=== PATIENT | male | born 1980 | race Caucasian/White ===

== ENCOUNTER 2024-09-03 15:51 | Inpatient (IN) | payer BC, SELFPAY ==
[2024-09-02 22:20] VITALS: BP 122/83
[2024-09-02 23:35] VITALS: BP 134/80
[2024-09-02 23:46] LABS: % Basophils 0.6 % (0-2); % Eosinophils 3.5 % (0-6); % Monocytes 9.2 % (1.7-9.3); % Neutrophils 40.7 % (42.2-75.2); Absolute Eosinophils 0.2 10^3/uL (0-0.7); Absolute Lymphocytes 2.3 10^3/uL (1.2-3.4); Absolute Monocytes 0.5 10^3/uL (0.1-0.6); Hematocrit 36.3 % (39.0-52.0); Hemoglobin 12.6 g/dL (13.0-18.0); Mean Corp Hgb Conc. 34.7 g/dL (33.0-37.0); Mean Corpuscular Hgb 28.8 pg (27.0-31.0); Mean Corpuscular Volume 82.9 fL (80.0-94.0); Mean Platelet Volume 10.4 fL (7.4-10.4); Nucleated Red Blood Cells % 0 % (-); Platelet Count 186 10^3/uL (130-400); Red Blood Cell Count 4.38 10^6/uL (4.70-6.10); Red Cell Dist. Width 13.8 % (11.5-14.5); White Blood Cell Count 4.9 10^3/uL (4.8-10.8)
[2024-09-02 23:51] VITALS: BMI 32.6
[2024-09-03] VITALS (21 sets, daily range): BP systolic 64–161; BP diastolic 74–113; PULSE 66; O2SAT 98; BMI 31.2
[2024-09-03 00:08] LABS: ALT (SGPT) 30 U/L (0-50); AST (SGOT) 23 U/L (17-59); Albumin 4.2 g/dl (3.5-5.0); Alkaline Phosphatase 65 U/L (38-126); Blood Urea Nitrogen 20 mg/dl (9-20); Calcium 9.4 mg/dl (8.4-10.2); Carbon Dioxide 24 mmol/L (22-30); Chloride 108 mmol/L (98-107); Estimated Creatinine Clearance 110 ml/min; Glucose 143 mg/dl (70-99); Potassium 4.2 mmol/L (3.5-5.1); Sodium 141 mmol/L (135-145); Total Bilirubin 0.3 mg/dl (0.2-1.3); Total Protein 6.7 g/dl (6.3-8.2); eGFR > 60.00
--- NOTE | 2024-09-03 00:53 | ED.GENMED ---
History of Present Illness
<JOSE Davis - Last Filed: 09/03/24 06:12>
General
Chief Complaint: Numbness
Source: patient
Time Seen by Provider: 09/03/24 00:48
Nursing documentation reviewed up to this point in time: agreed with
History of Present Illness
History of Present Illness:
A pleasant 44-year-old male with no past medical history presents to the emergency department for left-sided numbness x 2 days. The patient states that the numbness initially began after a stumble while leaving his house early Friday morning. He
states his dog pulled him out of the front door and did 'a maneuver ', and managed not to fall. He states 'I am going to feel that later '. He states the left-sided numbness is throughout his entire body. He describes it as 'like laying on a
heating pad that only covers the left side of my body '. Denies any vision changes, upper extremity or lower extremity weakness, chest pain, shortness of breath, dizziness, headaches.
Patient incidentally mentions a head injury that occurred on 08/24/2024 on his right church with minimal tenderness as of this moment. Patient injured his left thumb this past Friday which required multiple sutures to close and was
placed on Keflex.
Past History
<JOSE Davis - Last Filed: 09/03/24 06:12>
Past History
ED Past Medical History: None
ED Past Surgical History: None
Social History
Tobacco: Non-smoker
Alcohol: None
Drug: None
Personal:
Living: with family
Employment: Employed
Review of Systems
<JOSE Davis - Last Filed: 09/03/24 06:12>
Review of Systems
Allergies reviewed?: Yes
All Other Systems: ROS reviewed and negative except as documented in HPI and ROS
Phy Exam
<ST SusanTN - Last Filed: 09/03/24 06:12>
General Physical Exam
General Presentation: well appearing and no apparent distress
General age: appears stated age
General Skin: warm
General Habitus: normal
General Hydration: appears well hydrated
Eye Exam
Eye Exam: PERRL and EOMI
NIH Stroke Score
Level of Consciousness: 0 - Alert
LOC questions: 0-Answers both correctly
LOC Commands: 0-Performs both correctly
Best Gaze: 0-Normal
Visual Villalobos: 0=Normal, no visual loss
Facial palsy: 0=Normal, symmetrical
Motor - Right Arm: 0=No drift 10 seconds
Motor - Left Arm: 0=No drift 10 seconds
Motor - Right Le-No drift 5 seconds
Motor - Left Le-No drift 5 seconds
Limb Ataxia: 0-Absent
Sensation: 1-Mild loss
Best Language: 0-No aphasia
Dysarthria: 0-Normal
Extinction and Inattention: 0-No abnormality
Total Score:: 1
Mental
Describe Speech: normal speech
Motor
Gait: normal
Tremors: none
Right upper extremity: 5
Right lower extremity: 5
Left upper extremity: 5
Left lower extremity: 5
Sensory
Sensory Exam: other (change in sensation, but no decrease left sensation compared to right )
Cerebellar
Cerebellar Function: normal finger to nose and normal heel to lewis
Musculoskeletal Exam
Musculoskeletal Exam: full ROM and neuro vasc intact
<Thom Solomon DO - Last Filed: 09/03/24 02:17>
NIH Stroke Score
Total Score:: 1
Course
<Иван Saravia [facility] - Last Filed: 09/03/24 06:12>
Orders/Labs/Results
Orders:
Orders
09/02/24 22:50
CT Head W/o Iv Contrast Urgent
Comment:
Reason For Exam: left arm and left leg numbness for 2 days
09/02/24 23:32
CMP [Comprehensive Metabolic Panel] Urgent
Complete Blood Count/With Diff Urgent
09/03/24 03:24
Admit/Transfer Patient As Directed
Co-Sign Provider:
Level of Care: Observation services
Assign to:: Telemetry
Physician / Group: Tony
Diagnosis: Paresthesias
Reason for Telemetry: CVA/TIA
Date to Stop Telemetry: 09/06/24
Time to Stop Telemetry: 11:00
09/03/24 03:25
Code Status As Directed
Resuscitation Status: Full Code
PRN Pain Medication Management As Directed
May give lesser potent ordered pain med per pt: Yes
preference::
Protocol:: Medication orders for pain may be administered in a
manner that supports deferring to patient preference
when the pt is:
- Requesting an ordered lesser potent pain medication.
Least to most potent pain medications are defined
as: acetaminophen < NSAID < tramadol < opioids
(morphine, oxycodone, hydromorphone).
- Requesting a lesser dose of the same medication IF
ORDERED.
- Requesting a less intrusive route of administration
if both routes are prescribed by the provider (PO <
IV).
09/06/24 11:00
DC Protocol for Telemetry ONCE
Abnormal Lab Results
09/02/24
23:32
RBC 4.38 L 10^6/uL
(4.70-6.10)
Hgb 12.6 L g/dL
(13.0-18.0)
Hct 36.3 L %
(39.0-52.0)
Neutrophils % 40.7 L %
(42.2-75.2)
Chloride 108 H mmol/L
(98-107)
Glucose 143 H mg/dl
(70-99)
09/02/24 23:32
09/02/24 23:32
Vital Signs
Initial and Last Documented VS:
Initial Vital Signs
Temp Pulse Resp BP Pulse Ox
98.1 F 78 18 122/83 98
09/02/24 22:20 09/02/24 22:20 09/02/24 22:20 09/02/24 22:20 09/02/24 22:20
Last Documented Vital Signs
Temp Pulse Resp BP Pulse Ox
98.1 F 66 12 161/99 97
09/02/24 22:20 09/03/24 05:15 09/03/24 05:15 09/03/24 02:00 09/03/24 05:15
<Thom Solomon, DO - Last Filed: 09/03/24 02:17>
Orders/Labs/Results
Orders:
Orders
09/02/24 22:50
CT Head W/o Iv Contrast Urgent
Comment:
Reason For Exam: left arm and left leg numbness for 2 days
09/02/24 23:32
CMP [Comprehensive Metabolic Panel] Urgent
Complete Blood Count/With Diff Urgent
09/03/24 03:24
Admit/Transfer Patient As Directed
Co-Sign Provider:
Level of Care: Observation services
Assign to:: Telemetry
Physician / Group: Tony
Diagnosis: Paresthesias
Reason for Telemetry: CVA/TIA
Date to Stop Telemetry: 09/06/24
Time to Stop Telemetry: 11:00
09/03/24 03:25
Code Status As Directed
Resuscitation Status: Full Code
PRN Pain Medication Management As Directed
May give lesser potent ordered pain med per pt: Yes
preference::
Protocol:: Medication orders for pain may be administered in a
manner that supports deferring to patient preference
when the pt is:
- Requesting an ordered lesser potent pain medication.
Least to most potent pain medications are defined
as: acetaminophen < NSAID < tramadol < opioids
(morphine, oxycodone, hydromorphone).
- Requesting a lesser dose of the same medication IF
ORDERED.
- Requesting a less intrusive route of administration
if both routes are prescribed by the provider (PO <
IV).
09/06/24 11:00
DC Protocol for Telemetry ONCE
Abnormal Lab Results
09/02/24
23:32
RBC 4.38 L 10^6/uL
(4.70-6.10)
Hgb 12.6 L g/dL
(13.0-18.0)
Hct 36.3 L %
(39.0-52.0)
Neutrophils % 40.7 L %
(42.2-75.2)
Chloride 108 H mmol/L
(98-107)
Glucose 143 H mg/dl
(70-99)
09/02/24 23:32
09/02/24 23:32
Vital Signs
Initial and Last Documented VS:
Initial Vital Signs
Temp Pulse Resp BP Pulse Ox
98.1 F 78 18 122/83 98
09/02/24 22:20 09/02/24 22:20 09/02/24 22:20 09/02/24 22:20 09/02/24 22:20
Last Documented Vital Signs
Temp Pulse Resp BP Pulse Ox
98.1 F 66 12 161/99 97
09/02/24 22:20 09/03/24 05:15 09/03/24 05:15 09/03/24 02:00 09/03/24 05:15
<JOSE Davis - Last Filed: 09/03/24 06:12>
MDM/Problems Addressed
Differential Diagnosis Includes:
Stroke, spinal cord injury,
<JOSE Davis - Last Filed: 09/03/24 06:12>
*Critical Care Note
Total Time (30-74mins, 75-104mins- exclusive of procedures): Not Applicable
ED Attending Note
<JOSE Davis - Last Filed: 09/03/24 06:12>
-
Portions of this chart may have been created with voice recognition software.� Occasional wrong word or��sound alike� substitutions may have occurred due to the inherent limitations of voice recognition software.
<Thom Solomon DO - Last Filed: 09/03/24 02:17>
ED Attending Note
Patient seen and examined by attending physician: Yes
I performed the substantive portion of visit, reviewed & personally made and approve the management plan that is documented in note by myself or JOSEPHINE.: Yes
ED Attending Note:
44-year-old otherwise healthy male presents to the emergency department left-sided paresthesias and left-sided hot and cold indifference. Patient states that 2 weeks ago he inadvertently hit his head while at work. He hit his right church. He
states he did not really have any symptoms. On Friday he mistakenly cut his finger. Went to urgent care and had sutures and was started on Keflex. Friday morning he was walking out the door to go to work with the coffee and 1 hand and a dog
leash and another. The dog surgeon pulling the patient off balance. Patient states that he was able to prevent himself from falling but felt injured afterwards. He went to work without issue. Around mid afternoon he started to develop the
left-sided paresthesias and hot and cold intolerance. Since then, from his neck down has been different on the left than on the right. He states that he feels that his left side is numb and everything feels warmer on the left side that it does on
the right. Patient denies any slurring of speech. He has no headache or confusion. He states his right church still hurts from 2 weeks ago but it is minimal. Denies recent fevers. Has no neck pain. Denies chest pain or shortness of breath.
Patient was seen in conjunction with the PA student. I have reviewed and agree with the history and treatment plan presented. On my independent physical exam, patient is awake, alert, and oriented x3, no acute distress. Heart is regular rate and
rhythm. Lungs are clear to auscultation bilaterally no wheezes rales or rhonchi present. Abdomen is soft and nontender. Skin is warm and dry. Neurological exam, patient does feel sensation differences from left side compared to right. Good
muscle strength. Full range of motion in the upper and lower extremity. No horizontal or vertical nystagmus.
Discharge Plan
Departure
Patient Disposition: Admit
Date of Disposition: 09/03/24
Time of Disposition: 02:16
Admit to: Med/Surg
Presentation/result/management discussed w/ accepting MD/DO: Hospitalist
Discharge Problem:
Paresthesia
Interventions
Interventions:
*Risk Screen - Suicide Last Done: 09/02/24 22:20
*General Assessment Last Done: 09/02/24 22:20
*Neglect/Abuse Screening Last Done: 09/02/24 22:20
ED- Fall Risk Assessment Last Done: 09/02/24 23:51
*ED COVID-19 Vaccine History Last Done: 09/02/24 23:51
ED- Neurological Assessment Last Done: 09/02/24 23:56
--- NOTE | 2024-09-03 03:28 | HPS.HSE ---
Family Physician
-
Family Physician: * NONE
Chief Complaint
-
Paresthesias
History of Present Illness
Patient is a 44y M with no significant PMH who presents to ED complaining of numbness and tingling of the L side. Patient states that his symptoms started on Friday afternoon. On Friday, he was walking his dog when he was pulled awkwardly
and notes that he had to contort himself to avoid falling. He noted some mild back discomfort at that time. The sensation of numbness / tingling began later that afternoon. He describes it as feeling similar to a limb 'falling asleep'. He denies
any weakness or ataxia. He denies any prior history of similar symptoms.
The sensation extends from the L shoulder to the L toes. No involvement of the face / neck.
He was seen by his chiropractor today who noted that symptoms did not seem c/w a 'pinched nerve' and advised that he seek further evaluation.
Recent issues include mild impact injury to the R frontal area about 2 weeks ago. He notes that he walked under a backhoe and struck his head on the bucket / forks.
Some residual sensitivity but no noted hematoma, etc.
Patient also suffered a laceration to the L thumb about one week ago on a piece of sheet metal. He received sutures on 08/28 and was started on prophylactic Keflex (he has one day remaining).
He states that the thumb appears to be healing well. He does not feel ill and denies any fever / chills / etc.
Medical History
Past Medical History
Past Medical History: Reports None
Past Surgical History: Reports None
Social History
Tobacco: Non-smoker
Alcohol: Occasional
Drug: None
Family History
Family History: Other (Mother: Breast Cancer)
Allergies / Home Medications
Allergies reflects when Allergies were last updated in [employer].
Home Medications with original date entered in [employer]
Allergy/Medication List:
Allergies
Allergy/AdvReac Type Severity Reaction Status Date / Time
No Known Allergies Allergy Unverified 08/12/20 12:25
Home Medications
cephalexin 500 mg capsule 500 mg PO TID #21 caps 08/12/20
Review of Systems
-
History Source: Patient
A 12 point ROS was completed and negative except as noted: Yes
Constitutional: Denies Fever, Fatigue or Chills
EENT: Denies Sore Throat
Respiratory: Denies Cough or Trouble Breathing
Cardiac: Denies Chest Pain or Palpitations
Abdomen/GI: Denies Abdominal Pain, Nausea, Vomiting or Diarrhea
: Denies Dysuria, Frequency or Flank Pain
Musculoskeletal: Denies Joint Pain or Edema
Neurological: Reports Numbness; Denies Dizzy, Headache or Weakness
Psych: Denies Depression or Anxiety
Physical Exam
Vital Signs
Vital Signs
Temp Pulse Resp BP Pulse Ox
98.1 F 66 10 161/99 97
09/02/24 22:20 09/03/24 02:45 09/03/24 02:45 09/03/24 02:00 09/03/24 02:45
Physical Exam
General: Other (44y M in no acute distress.)
HEENT: Moist mucous membranes and PERRLA
Respiratory: Clear; No Wheezes, Rales or Rhonchi
Cardiac: S1/S2 and Regular Rhythm; No Murmur
GI: Soft, Non Tender, Non Distended and Normal Bowel Sounds
Musculoskeletal: No Clubbing, No Cyanosis and No Edema
Neuro: AO x 3 and Other (Reported sensory asymmetry with constant paresthesias and decreased sensation on the L.)
Laboratory Results
-
09/02/24 23:32
09/02/24 23:32
Laboratory Results
Total Bilirubin 0.3 mg/dl (0.2-1.3) 09/02/24 23:32
AST 23 U/L (17-59) 09/02/24 23:32
ALT 30 U/L (0-50) 09/02/24 23:32
Alkaline Phosphatase 65 U/L (38-126) 09/02/24 23:32
Impression/Plan
-
A/P: Patient is a 44y M with no significant PMH who presents to ED complaining of L sided paresthesias.
Left Sided Paresthesias
- Observe overnight for further evaluation and treatment.
- No appreciable weakness, ataxia, etc on exam.
- Sensory impairment / symptoms from the L arm to the L toes - no head / face involvement.
- Check MR brain in AM per Neurology recommendations.
- Will also check cervical MRI for any abnormality.
- Follow neurologic exam for any changes.
- Neurology consult for additional recommendations.
- PT / OT evaluations.
DVT Prophylaxis: SCDs
Code Status: Full
--- NOTE | 2024-09-03 06:16 | PTCARENOTE ---
Pt received from ED to 414-1. Pt oriented to room and call thao.
[2024-09-03 08:55] LABS: TSH Reflex To Free T4 0.76 uIU/ml (0.47-4.68)
[2024-09-03] MEDS: LOW STRENGTH ASPIRIN 81 MG PO (08:58)
--- NOTE | 2024-09-03 10:25 | CON.NEURO ---
Consultation
Order
Date of Consultation: 09/03/24
Requesting Provider: Manoj Jimenez DO
Reason for Consult: Paresthesias
CC:
HPI: This is a 44-year-old right-handed man who presented to [facility] on September 02, 2024 with sensory symptoms. Mr. Acosta, reports numb tingling on his left side. The onset of the numbness occurred on Friday, and he
was uncertain whether it started in his hand or foot. The tingling sensation is primarily experienced in his left arm and leg, while the numbness is described as similar to the sensation of an arm waking up after being slept on. He does not
experience tingling in his torso, but when lying down, the left side of his torso feels warm compared to the right side. He also reported that he could feel some numbness in his torso upon touching it.
He denied any facial sensory symptoms, headaches, diplopia, dysphagia or vertigo, ataxia. His balance is generally fine, although he experienced some difficulty walking the previous morning due to the numbness in his leg.
ER VS: 122/83-157/104, 78, afebrile
PDMP:none
Labs: Glucose�143, hemoglobin�12.6, normal MCV, normal creatinine, sodium, TSH
CT head�unremarkable
PMH:L II-II distal phalanges traumatic amputation
PSH: left L distal phalanx sutures
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
FH: mother form breast CA
All: NKDA
ROS:Constitutional: Negative. Negative for chills, fever and unexpected weight change.
HENT: Negative for ear pain, hearing loss, tinnitus and trouble swallowing.
Eyes: Negative. Negative for photophobia, pain and visual disturbance.
Respiratory: Negative for cough, choking and shortness of breath.
Cardiovascular: Negative for chest pain, palpitations and leg swelling.
Gastrointestinal: Negative for abdominal pain and vomiting.
Endocrine: Negative. Negative for cold intolerance.
Genitourinary: Negative for dysuria, flank pain and urgency.
Musculoskeletal: Negative for back pain, gait problem, neck pain and neck stiffness.
Skin: Negative for rash.
Allergic/Immunologic: Negative. Negative for immunocompromised state.
Neurological: Positive for sensory symptoms
Psychiatric/Behavioral: Negative for behavioral problems, confusion and hallucinations.
General: Well developed. In no acute distress.
Cardio: Regular rate and rhythm without murmur. Extremities are without cyanosis or edema.
Neuro:
Mental Status: Alert, oriented to person, place, and date. Normal attention and recall. Good fund of knowledge. Follows complex requests across the midline. Comprehension, naming, and repetition intact. Immediate and delayed recall 3/3.
Cranial Nerves: Pupils are equally round and reactive to light. EOMs full. Visual jacobsen full to confrontation. No ptosis. No nystagmus. V1-V3 intact to light touch and pinprick bilaterally, symmetric. Face symmetric. Normal hearing AU. The
palate elevated well. SCMs and traps 5/5. Tongue midline. No dysarthria.
Motor: Normal bulk and tone. No pronator or arm drift. Strength 5/5 throughout. No clonus.
Reflexes: 2+ throughout the upper extremities and knees. Negative Flako's bilaterally plantar responses flexor bilaterally.
Sensory: Normal vibration and proprioception at the toes
Coordination: No dysmetria or tremor.
Gait: Wide stance, normal base, stride. Mild difficulties with tandem gait and jumping on the left foot with
Assessment and Plan:
I. Left hemisensory deficits. No clear evidence of myelopathy on neuroexam. Rule out right thalamic vascular or demyelinating lesion
II. Anemia
III. Mild hyperglycemia
-Fall precaution
-Please obtain brain MRI without gadolinium
-Please check vitamin B-12, folate, vitamin B1, ESR/CRP, urine tox.
I personally reviewed all radiology and labs along with past medical records pertinent to current medical problems. Total time spent in patient care is 60 minutes.
Thank you for allowing us to participate in the care of this patient. We will continue to follow. Please do not hesitate to contact us with any questions or concerns.
Subjective/Objective
Subjective Data
Date of Service: September 03, 2024
Objective Data
Vital Signs
Temp Pulse Resp BP Pulse Ox
37.3 C 108 16 157/104 94
09/03/24 07:01 09/03/24 07:01 09/03/24 07:01 09/03/24 07:01 09/03/24 07:01
Lab Results
09/02/24 23:32
09/02/24 23:32
Sodium 141 mmol/L (135-145) 09/02/24 23:32
Potassium 4.2 mmol/L (3.5-5.1) 09/02/24 23:32
BUN 20 mg/dl (9-20) 09/02/24 23:32
Glucose 143 mg/dl (70-99) H 09/02/24 23:32
Calcium 9.4 mg/dl (8.4-10.2) 09/02/24 23:32
Patient Allergies
No Known Allergies Allergy (Unverified 08/12/20 12:25)
Medications
-
Active Medications
Generic Name Dose Route Start Last Admin
Trade Name Freq PRN Reason Stop Dose Admin
Acetaminophen 650 mg 09/03/24 06:17
Acetaminophen 325 Mg Tablet PO 10/01/24 06:16
Q4HPRN PRN
Mild Pain / Temp > 101
Aspirin 81 mg 09/03/24 08:00 09/03/24 08:58
Aspirin 81 Mg Chewable Tablet PO 10/01/24 07:59 81 mg
DAILY ROBERTO Administration
Home Medications
�Medication �Instructions �Recorded
cephalexin 500 mg capsule 500 mg PO TID #21 caps 08/12/20
Vital Signs and Labs
-
Vital Signs and Labs:
Vital Signs
Temp Pulse Resp BP Pulse Ox
37.3 C 108 16 157/104 94
09/03/24 07:01 09/03/24 07:01 09/03/24 07:01 09/03/24 07:01 09/03/24 07:01
Lab Results
09/02/24 23:32
09/02/24 23:32
Sodium 141 mmol/L (135-145) 09/02/24 23:32
Potassium 4.2 mmol/L (3.5-5.1) 09/02/24 23:32
BUN 20 mg/dl (9-20) 09/02/24 23:32
Glucose 143 mg/dl (70-99) H 09/02/24 23:32
Calcium 9.4 mg/dl (8.4-10.2) 09/02/24 23:32
Medications
-
Medications:
Generic Name Dose Route Start Last Admin
Trade Name Freq PRN Reason Stop Dose Admin
Acetaminophen 650 mg 09/03/24 06:17
Acetaminophen 325 Mg Tablet PO 10/01/24 06:16
Q4HPRN PRN
Mild Pain / Temp > 101
Aspirin 81 mg 09/03/24 08:00 09/03/24 08:58
Aspirin 81 Mg Chewable Tablet PO 10/01/24 07:59 81 mg
DAILY ROBERTO Administration
Home Medications
-
Home Medications
cephalexin 500 mg capsule 500 mg PO TID #21 caps 08/12/20
[2024-09-03 10:41] LABS: Glycohemoglobin (HgbA1c) 5.5 % (4.0-5.6)
[2024-09-03 11:58] LABS: CRP, Highly Sensitive 1.72 mg/L
[2024-09-03 13:01] LABS: Folate 14.7 ng/ml (2.76-20); Vitamin B12 281 pg/ml (239-931)
[2024-09-03 13:43] LABS: Amphetamines Negative (Negative); Barbiturates Negative (Negative); Benzodiazepines Negative (Negative); Buprenorphine Negative (Negative); Cocaine Negative (Negative); Marijuana Negative (Negative); Methadone Negative (Negative); Methamphetamines Negative (Negative); Opiates Negative (Negative); Phencyclidine Negative (Negative); Tricyclic Antidepressants Negative (Negative)
[2024-09-03 14:39] LABS: Erythrocyte Sed Rate 8 mm/hour (0-20)
--- NOTE | 2024-09-03 14:48 | W.PN.UPDATE ---
Update Note
Progress Note Update
Brain/C spine MRIs w/wo hanane showed hyperintense FLAIR signal within bilateral cervicomedullary junction with subtle focal enhancement on the right.
Assessment and plan:
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 Differential diagnosis includes demyelinating, inflammatory, infectious, neoplastic and paraneoplastic etiology, less likely vascular.
-Continue Telemetry
-ICU transfer(cervicomedullary junction is center of control of autonomic nervous system activity that regulates respiration and heart rate)
-Start Methylprednisolone 1000 mg daily IV QD for 3-5 days with GI prophylaxis
-CSF(OP/CP, cell count, protein, glucose, OCB, MBP, EBNNY, cx)
-ESR/CRP, anti SSA, SSB, BENNY, JIMMY, HIV, NMO-IgG, MOG�, Parvovirus B19, West Nile virus, CMV, EBV, HSV, VZV, hepatitis panel.
-Plan was discussed with the patient. All questions were answered.
Adamaris Kearney M.D.
--- NOTE | 2024-09-03 15:25 | W.PN.HOSP.TC ---
Today's Communication/Plan
-
See plan
Assessment / Plan
Assessment / Plan
Impression:
44 years old patient with no prior medical history presents with left-sided paresthesias for less than a week.
Transverse myelitis confirmed with imaging MRI of cervical spine findings consistent with hyperintense FLAIR signal within the cervicomedullary cord peripherally on the right and left aspects of the cord (right greater than left) suggesting
myelopathy and likely involving the lateral corticospinal tracts and spinothalamic tracts. There is subtle focal enhancement of this area on the right side of the cord, suggesting active disease.
No motor or autonomic symptoms upon presentation.
MRI of the brain with no acute abnormalities
Differential diagnosis transverse myelitis versus MS, less likely neuromyelitis optica, or ischemia.
Additional workup including:
LP
Serologic testing for autoimmune/inflammatory processes.
Transferred to ICU for close neurologic monitoring.
Initiate pulse dose of systemic steroids.
Mild B12 deficiency
Initiated oral B12 supplementation
Patient with laceration of the left thumb. Sutures in place. No evidence of infection. Continue oral antibiotics. Complete outpatient course.
Anticipated Discharge: > 48 hours
Subjective/Interval History
-
Date of Service: September 03, 2024
Objective Data
-
Labs:
Laboratory Results
09/03/24
15:16
PT Pending
INR Pending
Vital Signs:
Vital Signs
Temp Pulse Resp BP Pulse Ox
98.3 F 66 14 142/93 98
09/03/24 11:29 09/03/24 11:29 09/03/24 11:09/03/24 11:09/03/24 11:29
Physical Exam
-
General: Well Developed and No Apparent Distress
HEENT: Normocephalic, Atraumatic and Moist Mucous Membranes
Respiratory: Clear to Auscultation
Cardiac: Regular Rhythm and S1/S2; Negative Murmur, Rub or Gallop
GI: Soft, Nontender, Nondistended and Normal Bowel Sounds; Negative Organomegaly
Rectal: Deferred by Provider
Musculoskeletal: No Clubbing, No Cyanosis and No Edema
Skin: Negative Rash
Neuro: Nonfocal/Grossly Intact
[2024-09-03 15:37] LABS: INR 0.99; PT 12.9 Sec (11.4-14.6)
--- NOTE | 2024-09-03 15:55 | CM ---
Pt seen bedside w/ family. Pt lives w/ spouse and son in a [address]-13 steps to enter
Independent, no DME for functioning
Denies SNF
Denies VN/PT
Denies financial insecurities
Address, point of contact and insurance verified
PCP: Dr. Pathak
Pharmacy: [facility]
Pt OBS. OOBS form reviewed, pt given copy. Copy placed in chart
PT/OT- poss OT therapy. Will cont. to follow
Plan: Home w/ OP therapy
CM will cont. to follow for d/c needs
[2024-09-03 16:23] LABS: HIV Combo Negative (Negative)
--- NOTE | 2024-09-03 16:30 | PTCARENOTE ---
[address] [facility] via stretcher. Explain to pt, will transfer to ICU room [address] [facility]. Report given to ICU nurse. all personnel belongings sent to ICU.
--- NOTE | 2024-09-03 17:25 | CON.INTV ---
Consultation
Consultation Request
Date/Time Consultation Requested: 09/03
Date/Time Consultation Performed: 09/03
Reason for Consultation: Critical care
Medical History
-
History of Present Illness:
History obtained from the patient but most history is obtained from the chart. Patient is a 44-year-old male without significant past medical history who presents with neurological changes involving his left side. Per ED records he complained of
numbness and tingling in the left side started on 08/31/2024. There is no involvement of the face or neck. He was told by his chiropractor that it was likely not that pinched nerve. Upon arrival to [facility], afebrile, pulse 66,
breathing at 10, blood pressure 161/99, 97%. Liver function was normal. Patient was seen by neurology, brain MRI was obtained, which showed hyperintense FLAIR signal with bilateral cervical medullary junction subtle focal enhancement on the right.
Concern for transverse myelitis was noted. Patient was started on IV methylprednisolone pulse dose. Patient underwent lumbar tap and patient was transferred to ICU for further management 09/03/2024.
Records suggest that patient also had laceration of left thumb which sheet-metal 1 week ago and also had mildly impact injury to his right frontal area when he was struck with a pocket. He went to urgent care where they stitched up his left thumb
injury and he does note possibly getting tetanus shot about 4 years ago when he injured his left second and third digit
.
PMH: Sleep apnea with nocturnal hypoxia AHI 80 with desaturation aniket 84% 2007, intolerant to CPAP. Repeat study unremarkable 2020, GERD
Past Medical History
Past Medical History: None (See above)
Past Surgical History: None (See above)
Social History
Tobacco: Non-smoker
Alcohol: Occasional
Drug: None
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
Family History
Family History: Other (1 son healthy. Mother is from breast cancer age 64, father alive.)
Allergies / Home Medications
Allergies
Allergy/AdvReac Type Severity Reaction Status Date / Time
No Known Allergies Allergy Unverified 08/12/20 12:25
Home Medications
�Medication �Instructions �Recorded �Confirmed �Last Taken �Type
cephalexin 500 mg capsule 500 mg PO TID #21 caps 08/12/20 09/03/24 09/02/24 21:00 Rx
Review of Systems
-
All other systems: Negative unless noted
Vitals / Labs / Diagnostic Testing
Vital Signs
Temp Pulse Resp BP Pulse Ox
98.0 F 64 14 128/87 98
09/03/24 17:00 09/03/24 17:10 09/03/24 17:10 09/03/24 17:10 09/03/24 17:00
Lab Data
09/02/24 23:32
09/02/24 23:32
Laboratory Results
09/03/24
15:16
PT 12.9
INR 0.99
Diagnostic Testing:
Assessment
-
44-year-old male without significant medical history with recent left thumb injury 1 week ago went to urgent care, had it stitched. He now presents with left-sided numbness. He notes it more while he is walking. He describes a tingling sensation.
He went to see a chiropractor who said needs to see a physician. Patient seen by neurology, and suspected to have transverse myelitis, now transferred to ICU for further management
Transverse myelitis per MRI imaging
Left-sided tingling/numbness started 08/31/2024
Recent laceration of left thumb
Sutures 08/28/2024
Started on antibiotics
Distant left first and second digit injury, approximately 2019
Saw, received tetanus shot at that time
History of sleep apnea, severe (AHI 80 in 2007)
Witnessed apneas in the past
Recent sleep study 2020 normal
Family history of breast cancer (mother)
Plan/recommendations
At this time, patient appears to be comfortable. There is no evidence of hemodynamic instability, no evidence of shortness of breath
Patient denies any vision changes, headaches, palpitations, lightheadedness, chest pain, breathing issues
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
Moving forward
Continue with management per neurology
Patient is status post LP
Ongoing workup for possible inflammatory or autoimmune process
Receiving IV pulse steroids
Remains on antibiotics as outpatient, cephalexin for recent thumb injury
GI prophylaxis
Follow blood sugars
DVT prophylaxis: Recommend mechanical prophylaxis. Will be an ongoing discussion regarding pharmacological prophylaxis. Patient status post LP today
Reviewed with critical care nursing
We will follow
[2024-09-03 17:32] LABS: CSF Clarity Clear; CSF Color Colorless; CSF Tube # 4; White Cell Count/CSF 4 mm^3 (0-5)
[2024-09-03 17:33] LABS: Red Cell Count/CSF 6 mm^3
[2024-09-03] MEDS: VITAMIN B-12 1000 MCG PO (17:44)
[2024-09-03] MEDS: PROTONIX 40 MG PO (17:44)
[2024-09-03] MEDS: KEFLEX 500 MG PO ×2 (17:44→22:37)
[2024-09-03] MEDS: SOLU-MEDROL 258 MG IV (17:45)
[2024-09-03 17:58] LABS: Magnesium 2.3 mg/dl (1.6-2.3)
[2024-09-03 18:01] LABS: APTT 28.2 Sec (23.4-35.0)
[2024-09-03 18:33] LABS: Glucose - Point of Care 80 mg/dl (70-99)
--- NOTE | 2024-09-03 18:33 | PTCARENOTE ---
Pt received to ICU bed 3371 from [facility] at 1730. Report received from 4th floor RN and IR RN.
Pt AAOx3. Reports decreased sensation on left side which he reports improved when in bed and worse when walking around.
Denies pain. Sinus rhythm. Lungs CTA. SpO2 98%. Abdomen soft and NT.
[2024-09-03 18:36] LABS: Spinal Fluid Glucose 58 mg/dl (40-70); Spinal Fluid Protein 59 mg/dl (12-60)
[2024-09-03] MEDS: NOVOLOG FLEXPEN-LOW RESISTANCE SC (19:14)
[2024-09-03 21:55] LABS: Glucose - Point of Care 269 mg/dl (70-99)
[2024-09-03] MEDS: NOVOLOG FLEXPEN 4 UNITS SC (22:37)
--- NOTE | 2024-09-03 22:51 | PTCARENOTE ---
Assumed care of pt at 1900. Pt is A/O x4, pleasant and cooperative with care. No c/o pain. Muscle strength 5/5 in all extremities, see neurological flowsheet for full neuro check details. Pt reports decreased sensation in left arm and left leg but
there are no changes in his strength in those extremities. See nursing shift assessment flowsheet for full physical assessment details. SR on monitor, SpO2 96% on RA.
[2024-09-04] VITALS (14 sets, daily range): BP systolic 119–160; BP diastolic 62–92; BMI 30.5
--- NOTE | 2024-09-04 00:23 | PTCARENOTE ---
Physical and neurological assessments unchanged. SR 60s on monitor, SpO2 95% on RA. Pt received x1 dose of 4 units Novolog for HS blood sugar of 269. Pt educated at that time on s/s of hypoglycemia since he has never had insulin before.
[2024-09-04 03:15] LABS: Hematocrit 43.7 % (39.0-52.0); Hemoglobin 14.9 g/dL (13.0-18.0); Mean Corp Hgb Conc. 34.1 g/dL (33.0-37.0); Mean Corpuscular Hgb 29.3 pg (27.0-31.0); Mean Platelet Volume 10.5 fL (7.4-10.4); Platelet Count 215 10^3/uL (130-400); Red Blood Cell Count 5.08 10^6/uL (4.70-6.10); Red Cell Dist. Width 13.3 % (11.5-14.5); White Blood Cell Count 7.4 10^3/uL (4.8-10.8)
[2024-09-04 03:39] LABS: Blood Urea Nitrogen 17 mg/dl (9-20); Calcium 9.9 mg/dl (8.4-10.2); Carbon Dioxide 19 mmol/L (22-30); Chloride 106 mmol/L (98-107); Estimated Creatinine Clearance > 125 ml/min; Glucose 187 mg/dl (70-99); HDL Cholesterol 71 mg/dl; LDL Cholesterol, Calculated 147 mg/dl; Potassium 4.9 mmol/L (3.5-5.1); Sodium 141 mmol/L (135-145); Total Cholesterol 225 mg/dl (50-199); Triglyceride 39 mg/dl (10-149); Very Low Density Lipoprotein 7 mg/dl (0-30); eGFR > 60.00
--- NOTE | 2024-09-04 07:14 | W.PN.INTV ---
Today's Communication / Plan
Recommendations
Continue steroids
Mechanical DVT prophylaxis
Await neuro studies
Follow blood sugars
For transfer out of ICU. We will sign off. Please call with questions
Assessment
-
44-year-old male without significant medical history with recent left thumb injury 1 week ago went to urgent care, had it stitched. He now presents with left-sided numbness. He notes it more while he is walking. He describes a tingling sensation.
He went to see a chiropractor who said needs to see a physician. Patient seen by neurology, and suspected to have transverse myelitis, now transferred to ICU for further management
Transverse myelitis per MRI imaging
Left-sided tingling/numbness started 08/31/2024
Recent laceration of left thumb
Sutures 08/28/2024
Started on antibiotics
Distant left first and second digit injury, approximately 2019
Saw, received tetanus shot at that time
History of sleep apnea, severe (AHI 80 in 2007)
Witnessed apneas in the past
Recent sleep study 2020 normal
Family history of breast cancer (mother)
Plan/recommendations
At this time, patient appears to be comfortable. There is no evidence of hemodynamic instability, no evidence of shortness of breath
Patient denies any vision changes, headaches, palpitations, lightheadedness, chest pain, breathing issues
Moving forward
Continue with management per neurology
Patient is status post LP
Ongoing workup for possible inflammatory or autoimmune process
Receiving IV pulse steroids
Remains on antibiotics as outpatient, cephalexin for recent thumb injury
GI prophylaxis
Follow blood sugars
DVT prophylaxis: Recommend mechanical prophylaxis. Will be an ongoing discussion regarding pharmacological prophylaxis. Patient status post LP today
Reviewed with critical care nursing
Okay for transfer out of ICU. We will sign off. Please call with questions
Subjective Dataa
Subjective Data
Date of Service:
Date of Service: September 04, 2024
Subjective:
Patient without complaints. Denies any tingling sensation of the left side but in the past states that this was with ambulation.
Objective Data
Data Reviewed
Vital Signs / I&O / Oxygen:
Vital Signs
Temp Pulse Resp BP Pulse Ox
97.6 F 78 24 132/87 95
09/04/24 03:03 09/04/24 06:00 09/04/24 06:00 09/04/24 06:00 09/04/24 06:00
Intake and Output
09/03/24 09/04/24 09/05/24
06:59 06:59 05:59
Intake Total 500 / 500
Output Total 1775 / 1775
Balance -1275 / -1275
SaO2 95
Physical Exam
General: Comfortable
HEENT: Normocephalic and Anicteric
Cardiovascular: S1-S2, Regular Rhythm, Murmur (n) and Rub (n)
Respiratory: Wheeze (n), Crackles (n), Rhonchi (n) and Non-Labored Respirations
GI: Soft, Non Distended and Non Tender
Neurology: Alert and No Motor Deficits
Skin: Other (Left digit stitches)
Labs/Micro/Reports
Lab Data
09/04/24 03:07
09/04/24 03:07
Laboratory Results
09/03/24
15:16
PT 12.9
INR 0.99
APTT 28.2
Microbiology
09/03/24 16:45 Csf Gram Stain - Preliminary
[2024-09-04 07:24] LABS: Glucose - Point of Care 175 mg/dl (70-99)
[2024-09-04] MEDS: NOVOLOG FLEXPEN-LOW RESISTANCE 1 UNITS SC (08:33)
[2024-09-04] MEDS: PROTONIX 40 MG PO (08:34)
[2024-09-04] MEDS: VITAMIN B-12 1000 MCG PO (08:34)
[2024-09-04] MEDS: KEFLEX 500 MG PO ×3 (08:34→22:22)
[2024-09-04] MEDS: LOW STRENGTH ASPIRIN 81 MG PO (08:34)
--- NOTE | 2024-09-04 08:49 | W.PN.HOSP.TC ---
Today's Communication/Plan
-
transfer to tele
cont pulse dose steroids
Assessment / Plan
Assessment / Plan
Impression:
44 years old patient with no prior medical history presents with left-sided paresthesias for less than a week.
09/04/24- continue pulse dose steroids--Ok for transfer to tele--cont PT/OT--pt asking for discharge despite explaining needs daily pulse dose steroids--CSF studies pending
Transverse myelitis confirmed with imaging MRI of cervical spine findings consistent with hyperintense FLAIR signal within the cervicomedullary cord peripherally on the right and left aspects of the cord (right greater than left) suggesting
myelopathy and likely involving the lateral corticospinal tracts and spinothalamic tracts. There is subtle focal enhancement of this area on the right side of the cord, suggesting active disease.
No motor or autonomic symptoms upon presentation.
MRI of the brain with no acute abnormalities
Differential diagnosis transverse myelitis versus MS, less likely neuromyelitis optica, or ischemia.
Additional workup including:
LP
Serologic testing for autoimmune/inflammatory processes.
Transferred to ICU for close neurologic monitoring.
Initiate pulse dose of systemic steroids.
Mild B12 deficiency
Initiated oral B12 supplementation
Patient with laceration of the left thumb. Sutures in place. No evidence of infection. Continue oral antibiotics. Complete outpatient course.
Anticipated Discharge: > 48 hours
Subjective/Interval History
-
Date of Service: September 04, 2024
pt asking about going home
Objective Data
-
Labs:
Laboratory Results
09/04/24
03:07
WBC 7.4
Hgb 14.9
Hct 43.7
Plt Count 215
Sodium 141
Potassium 4.9
Chloride 106
Carbon Dioxide 19 L
BUN 17
Creatinine 0.8
Glucose 187 H
Calcium 9.9
Vital Signs:
max temp for 24 hours
09/03/24
23:14
Temp 98.7 F
Vital Signs
Temp Pulse Resp BP Pulse Ox
98.1 F 72 15 150/78 97
09/04/24 07:00 09/04/24 08:00 09/04/24 08:00 09/04/24 08:00 09/04/24 08:00
I&O
09/03/24 09/04/24 09/05/24
06:59 06:59 05:59
Intake Total 500 / 500
Output Total 1775 / 1775
Balance -1275 / -1275
Review of Systems
-
All other systems: Reviewed and negative
Neuro: Reports Other (still with some left sided paresthesias)
Physical Exam
-
General: Well Developed, Well Nourished and No Apparent Distress
HEENT: Normocephalic and Atraumatic; Negative Oxygen
Respiratory: Clear to Auscultation; Negative Wheezes or Rhonchi
Cardiac: Regular Rhythm and S1/S2; Negative Murmur
GI: Soft, Nontender, Nondistended and Normal Bowel Sounds
Musculoskeletal: No Clubbing, No Cyanosis and No Edema
Neuro: Awake, Alert and Nonfocal/Grossly Intact; Negative No Motor Deficits or Tremors
--- NOTE | 2024-09-04 11:58 | W.PN.NEURO.1 ---
Today's Communication / Plan
-
.
Subjective/Objective
Subjective Data
Date of Service: September 04, 2024
Neurology follow-up note
24h events: hypertensive in AM, afebrile.
Mr. Acosta states that his left paresthesias have been stable. No reports of dysarthria, dysphagia, dysphonia sialorrhea, palpitations or change in vision.
CSF (09/03/2024) OP <10 cm water, normal cell count, glucose, protein
Labs: Glucose�187, vitamin B12 281, normal folate, normal TSH
Brain/C spine MRIs w/wo hanane showed hyperintense FLAIR signal within bilateral cervicomedullary junction with subtle focal enhancement on the right.
PMH:L II-II distal phalanges traumatic amputation
PSH: left L distal phalanx sutures
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
FH: mother from breast CA
All: NKDA
ROS:Constitutional: Negative. Negative for chills, fever and unexpected weight change.
HENT: Negative for ear pain, hearing loss, tinnitus and trouble swallowing.
Eyes: Negative. Negative for photophobia, pain and visual disturbance.
Respiratory: Negative for cough, choking and shortness of breath.
Cardiovascular: Negative for chest pain, palpitations and leg swelling.
Gastrointestinal: Negative for abdominal pain and vomiting.
Endocrine: Negative. Negative for cold intolerance.
Genitourinary: Negative for dysuria, flank pain and urgency.
Musculoskeletal: Negative for back pain, gait problem, neck pain and neck stiffness.
Skin: Negative for rash.
Allergic/Immunologic: Negative. Negative for immunocompromised state.
Neurological: Positive for sensory symptoms, hand tremor
Psychiatric/Behavioral: Negative for behavioral problems, confusion and hallucinations.
General: Well developed. In no acute distress.
Cardio: Regular rate and rhythm without murmur. Extremities are without cyanosis or edema.
Neuro:
Mental Status: Alert, oriented to person, place, and date. Normal attention and recall. Good fund of knowledge. Follows complex requests across the midline. Comprehension, naming, and repetition intact. Immediate and delayed recall 3/3.
Cranial Nerves: Pupils are equally round and reactive to light. EOMs full. Visual jacobsen full to confrontation. No ptosis. No nystagmus. V1-V3 intact to light touch and pinprick bilaterally, symmetric. Face symmetric. Normal hearing AU. The
palate elevated well. SCMs and traps 5/5. Tongue midline. No dysarthria.
Motor: Normal bulk and tone. No pronator or arm drift. Strength 5/5 throughout, except for L delt 5-/5. No clonus.
Reflexes: 2+ throughout the upper extremities and 3+knees. Negative Flako's bilaterally plantar responses flexor bilaterally.
Coordination: No dysmetria, mild action hand tremor
Gait: deferred
Assessment and plan:
I. Transverse myelitis. Differential diagnosis includes demyelinating, inflammatory, infectious, neoplastic and paraneoplastic etiology, less likely vascular.
II. Action hand tremor, likely side effect of prednisone
III. Vit B12 deficiency
-Continue ICU care for 24h more hours
-Continue Methylprednisolone 1000 mg daily IV QD for 2 more doses
-GI prophylaxis
-Continue cyanocobalamin 1000mg QD PO, start thiamine
-Follow up CSF and serological studies
-DVT prophylaxis.
I personally reviewed all radiology and labs along with past medical records pertinent to current medical problems. Total time spent in patient care is 35 minutes.
Thank you for allowing us to participate in the care of this patient. We will continue to follow. Please do not hesitate to contact us with any questions or concerns.
Objective Data
Vital Signs
Temp Pulse Resp BP Pulse Ox
37.1 C 103 18 151/92 98
09/04/24 11:00 09/04/24 11:30 09/04/24 09:00 09/04/24 10:42 09/04/24 09:00
Lab Results
09/04/24 03:07
09/04/24 03:07
PT 12.9 Sec (11.4-14.6) 09/03/24 15:16
INR 0.99 09/03/24 15:16
APTT 28.2 Sec (23.4-35.0) 09/03/24 15:16
Sodium 141 mmol/L (135-145) 09/04/24 03:07
Potassium 4.9 mmol/L (3.5-5.1) 09/04/24 03:07
BUN 17 mg/dl (9-20) 09/04/24 03:07
Glucose 187 mg/dl (70-99) H 09/04/24 03:07
Calcium 9.9 mg/dl (8.4-10.2) 09/04/24 03:07
LDL Cholesterol, Calc 147 mg/dl 09/04/24 03:07
Vitamin B12 281 pg/ml (239-931) 09/03/24 11:15
Ur Buprenorphine Negative (Negative) 09/03/24 13:23
Patient Allergies
No Known Allergies Allergy (Unverified 08/12/20 12:25)
[2024-09-04] MEDS: NOVOLOG FLEXPEN-LOW RESISTANCE 2 UNITS SC (12:06)
[2024-09-04 12:16] LABS: Glucose - Point of Care 214 mg/dl (70-99)
[2024-09-04] MEDS: THIAMINE INJECTION 100 MG IV (13:53)
--- NOTE | 2024-09-04 14:31 | PTCARENOTE ---
Rec'd pt at 0700. Pt AAOx3, follows commands, FLANAGAN with equal strength. Reports tingling to LUE/LLE and left side of body, unchanged. See neuro flowsheet. Denies any pain/SOB. Monitor SR. Pt made tele status but to remain in ICU overnight per MD,
tele pack applied to pt. Pt ambulating in room.
[2024-09-04] MEDS: SOLU-MEDROL 258 MG IV (15:05)
[2024-09-04 17:41] LABS: Glucose - Point of Care 146 mg/dl (70-99)
[2024-09-04] MEDS: NOVOLOG FLEXPEN-LOW RESISTANCE SC (17:41)
[2024-09-04 22:18] LABS: Glucose - Point of Care 288 mg/dl (70-99)
[2024-09-04] MEDS: NOVOLOG FLEXPEN 4 UNITS SC (22:22)
--- NOTE | 2024-09-04 23:20 | PTCARENOTE ---
Assumed care of pt at 1900. Pt is A/O x4, pleasant and cooperative with care. No c/o pain. SR 80s on monitor, spot checking SpO2, 98% on RA. See nursing shift assessment flowsheet and neurological assessment flowsheet for further details. Pt able to
ambulate in the room independently, able to take a shower this evening, now resting in bed.
[2024-09-05] VITALS (7 sets, daily range): BP systolic 124–164; BP diastolic 65–96
[2024-09-05 01:20] LABS: ANA, IgG Reflex to HEp-2 None Detected (None Detected)
[2024-09-05 04:16] LABS: Hematocrit 39.4 % (39.0-52.0); Hemoglobin 13.7 g/dL (13.0-18.0); Mean Corp Hgb Conc. 34.8 g/dL (33.0-37.0); Mean Corpuscular Volume 83.5 fL (80.0-94.0); Mean Platelet Volume 10.3 fL (7.4-10.4); Platelet Count 231 10^3/uL (130-400); Red Blood Cell Count 4.72 10^6/uL (4.70-6.10); Red Cell Dist. Width 13.7 % (11.5-14.5); White Blood Cell Count 13.1 10^3/uL (4.8-10.8)
[2024-09-05 04:38] LABS: Blood Urea Nitrogen 23 mg/dl (9-20); Calcium 9.9 mg/dl (8.4-10.2); Carbon Dioxide 23 mmol/L (22-30); Chloride 105 mmol/L (98-107); Estimated Creatinine Clearance > 125 ml/min; Glucose 171 mg/dl (70-99); Magnesium 2.4 mg/dl (1.6-2.3); Potassium 5.2 mmol/L (3.5-5.1); Sodium 140 mmol/L (135-145); eGFR > 60.00
--- NOTE | 2024-09-05 06:48 | W.PN.INTV ---
Today's Communication / Plan
Recommendations
Continue steroids per neurology
Follow blood sugars
Patient transferred out of ICU. We will sign off. Please call with questions
Assessment
-
44-year-old male without significant medical history with recent left thumb injury 1 week ago went to urgent care, had it stitched. He now presents with left-sided numbness. He notes it more while he is walking. He describes a tingling sensation.
He went to see a chiropractor who said needs to see a physician. Patient seen by neurology, and suspected to have transverse myelitis, now transferred to ICU for further management
Transverse myelitis per MRI imaging
Left-sided tingling/numbness started 08/31/2024
Recent laceration of left thumb
Sutures 08/28/2024
Started on antibiotics
Distant left first and second digit injury, approximately 2019
Saw, received tetanus shot at that time
History of sleep apnea, severe (AHI 80 in 2007)
Witnessed apneas in the past
Recent sleep study 2020 normal
Family history of breast cancer (mother)
Plan/recommendations
At this time, patient appears to be comfortable. There is no evidence of hemodynamic instability, no evidence of shortness of breath
Patient denies any chest pain, breathing issues
Moving forward
Continue with management per neurology
Patient is status post LP
Ongoing workup for possible inflammatory or autoimmune process
Receiving IV pulse steroids
Remains on antibiotics as outpatient, cephalexin for recent thumb injury
GI prophylaxis
Follow blood sugars
DVT prophylaxis: Recommend mechanical prophylaxis. Will be an ongoing discussion regarding pharmacological prophylaxis. Patient status post LP today
Reviewed with critical care nursing
Okay for transfer out of ICU. We will sign off. Please call with questions
Subjective Dataa
Subjective Data
Date of Service:
Date of Service: September 05, 2024
Subjective:
Overall, patient appears to be doing well. There may be some slight improvement in the tingling and the numbness sensation but it is not completely resolved. Otherwise denies shortness of breath, chest pain
Objective Data
Data Reviewed
Vital Signs / I&O / Oxygen:
Vital Signs
Temp Pulse Resp BP Pulse Ox
97 F 69 18 131/79 98
09/05/24 04:16 09/05/24 05:30 09/04/24 09:00 09/05/24 04:00 09/04/24 22:00
Intake and Output
09/03/24 09/04/24 09/05/24
06:59 06:59 05:59
Intake Total 500 / 500 1210 / 1210
Output Total 1775 / 1775 450 / 450
Balance -1275 / -1275 760 / 760
SaO2 98
Physical Exam
General: Comfortable
HEENT: Normocephalic and Anicteric
Cardiovascular: S1-S2, Regular Rhythm, Murmur (n) and Rub (n)
Respiratory: Wheeze (n), Crackles (n), Rhonchi (n) and Non-Labored Respirations
GI: Soft, Non Distended and Non Tender
Neurology: Alert and No Motor Deficits
Skin: Other (Left digit stitches)
Labs/Micro/Reports
Lab Data
09/05/24 04:07
09/05/24 04:07
Microbiology
09/03/24 16:45 Csf CSF Culture - Preliminary
No Growth After 18-24 Hours
09/03/24 16:45 Csf Gram Stain - Preliminary
[2024-09-05] MEDS: LOW STRENGTH ASPIRIN 81 MG PO (07:51)
[2024-09-05] MEDS: THIAMINE INJECTION 100 MG IV (07:51)
[2024-09-05] MEDS: PROTONIX 40 MG PO (07:51)
[2024-09-05] MEDS: VITAMIN B-12 1000 MCG PO (07:52)
[2024-09-05] MEDS: KEFLEX 500 MG PO ×3 (07:52→21:38)
[2024-09-05] MEDS: NOVOLOG FLEXPEN-LOW RESISTANCE SC ×3 (07:57→16:09)
[2024-09-05 08:13] LABS: Glucose - Point of Care 140 mg/dl (70-99)
--- NOTE | 2024-09-05 08:25 | W.PN.HOSP.TC ---
Today's Communication/Plan
-
await neuro input
Assessment / Plan
Assessment / Plan
Impression:
44 years old patient with no prior medical history presents with left-sided paresthesias for less than a week.
09/05/24 -- today will be day 3 of pulse steroids--await input from neuro re: next steps--no need for PT as already evaluated and no needs determined
09/04/24- continue pulse dose steroids--Ok for transfer to tele--cont PT/OT--pt asking for discharge despite explaining needs daily pulse dose steroids--CSF studies pending
Transverse myelitis confirmed with imaging MRI of cervical spine findings consistent with hyperintense FLAIR signal within the cervicomedullary cord peripherally on the right and left aspects of the cord (right greater than left) suggesting
myelopathy and likely involving the lateral corticospinal tracts and spinothalamic tracts. There is subtle focal enhancement of this area on the right side of the cord, suggesting active disease.
No motor or autonomic symptoms upon presentation.
MRI of the brain with no acute abnormalities
Differential diagnosis transverse myelitis versus MS, less likely neuromyelitis optica, or ischemia.
Additional workup including:
LP
Serologic testing for autoimmune/inflammatory processes.
Transferred to ICU for close neurologic monitoring.
Initiate pulse dose of systemic steroids.
Mild B12 deficiency
Initiated oral B12 supplementation
Patient with laceration of the left thumb. Sutures in place. No evidence of infection. Continue oral antibiotics. Complete outpatient course.
Anticipated Discharge: Within 24 hours
Subjective/Interval History
-
Date of Service: September 05, 2024
pt paresthesias better but having sensation processing issues (cold feels hot, etc)
Objective Data
-
Labs:
Laboratory Results
09/05/24
04:07
WBC 13.1 H
Hgb 13.7
Hct 39.4
Plt Count 231
Sodium 140
Potassium 5.2 H
Chloride 105
Carbon Dioxide 23
BUN 23 H
Creatinine 0.8
Glucose 171 H
Calcium 9.9
Vital Signs:
max temp for 24 hours
09/04/24
15:00
Temp 98.8 F
Vital Signs
Temp Pulse Resp BP Pulse Ox
97.6 F 58 18 131/79 98
09/05/24 08:06 09/05/24 07:00 09/04/24 09:00 09/05/24 04:00 09/04/24 22:00
I&O
09/04/24 09/05/24 09/06/24
07:59 06:59 06:59
Intake Total
Output Total
Balance
Review of Systems
-
All other systems: Reviewed and negative
Neuro: Reports Other (sensation issues)
Physical Exam
-
General: Well Developed, Well Nourished and No Apparent Distress
HEENT: Normocephalic and Atraumatic
Respiratory: Clear to Auscultation; Negative Wheezes or Rhonchi
Cardiac: Regular Rhythm and S1/S2; Negative Murmur
GI: Soft, Nontender, Nondistended and Normal Bowel Sounds
Musculoskeletal: No Clubbing, No Cyanosis and No Edema
Neuro: Awake, Alert and Nonfocal/Grossly Intact
--- NOTE | 2024-09-05 09:31 | PTCARENOTE ---
Rec'd pt at 0700. Pt AAOx3. States tingling in his left side has improved, only has some remaining in his left fingertips. Also stated his sensation to cold temperature has returned to everywhere except his left flank/back area. Monitor SR. Lungs
CTA. Ambulating in room.
--- NOTE | 2024-09-05 11:44 | W.PN.NEURO.1 ---
Today's Communication / Plan
-
.
Subjective/Objective
Subjective Data
Date of Service: September 05, 2024
Neurology follow-up note
24h events: Mr. Acosta reports no complaints. He states that his left hemisensory deficits have been improving. No reports of dysarthria, dysphagia, weakness, urinary urgency.
CSF (09/03/2024) OP <10 cm water, normal cell count, glucose, protein
Labs: K 5.2, gluc-171.
Brain/C spine MRIs w/wo hanane showed hyperintense FLAIR signal within bilateral cervicomedullary junction with subtle focal enhancement on the right.
PMH:L II-II distal phalanges traumatic amputation
PSH: left L distal phalanx sutures
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
FH: mother from breast [place]
All: NKDA
ROS:Constitutional: Negative. Negative for chills, fever and unexpected weight change.
HENT: Negative for ear pain, hearing loss, tinnitus and trouble swallowing.
Eyes: Negative. Negative for photophobia, pain and visual disturbance.
Respiratory: Negative for cough, choking and shortness of breath.
Cardiovascular: Negative for chest pain, palpitations and leg swelling.
Gastrointestinal: Negative for abdominal pain and vomiting.
Endocrine: Negative. Negative for cold intolerance.
Genitourinary: Negative for dysuria, flank pain and urgency.
Musculoskeletal: Negative for back pain, gait problem, neck pain and neck stiffness.
Skin: Negative for rash.
Allergic/Immunologic: Negative. Negative for immunocompromised state.
Neurological: Positive for sensory symptoms, hand tremor
Psychiatric/Behavioral: Negative for behavioral problems, confusion and hallucinations.
General: Well developed. In no acute distress.
Cardio: Regular rate and rhythm without murmur. Extremities are without cyanosis or edema.
Neuro:
Mental Status: Alert, oriented to person, place, and date. Normal attention and recall. Good fund of knowledge. Follows complex requests across the midline. Comprehension, naming, and repetition intact. Immediate and delayed recall 3/3.
Cranial Nerves: Pupils are equally round and reactive to light. EOMs full. Visual jacobsen full to confrontation. No ptosis. No nystagmus. V1-V3 intact to light touch and pinprick bilaterally, symmetric. Face symmetric. Normal hearing AU. The
palate elevated well. SCMs and traps 5/5. Tongue midline. No dysarthria.
Motor: Normal bulk and tone. No pronator or arm drift. Strength 5/5 throughout. No clonus.
Reflexes: 2+ throughout the upper extremities and 3+knees. Negative Flako's bilaterally plantar responses flexor bilaterally.
Coordination: No dysmetria, mild action hand tremor
Gait: deferred
Assessment and plan:
I. Transverse myelitis. Differential diagnosis includes demyelinating, inflammatory, infectious, neoplastic and paraneoplastic etiology, less likely vascular.
II. Action hand tremor, likely side effect of prednisone
III. Vit B12 deficiency
-Continue Methylprednisolone 1000 mg daily IV QD for 1 more dose
-GI prophylaxis
-Continue cyanocobalamin 1000mg QD PO
-Follow up CSF and serological studies
-PT
-DVT prophylaxis.
I personally reviewed all radiology and labs along with past medical records pertinent to current medical problems. Total time spent in patient care is 35 minutes.
Thank you for allowing us to participate in the care of this patient. We will continue to follow. Please do not hesitate to contact us with any questions or concerns.
Objective Data
Vital Signs
Temp Pulse Resp BP Pulse Ox
36.4 C 58 18 131/79 98
09/05/24 08:06 09/05/24 07:00 09/04/24 09:00 09/05/24 04:00 09/04/24 22:00
Lab Results
09/05/24 04:07
09/05/24 04:07
PT 12.9 Sec (11.4-14.6) 09/03/24 15:16
INR 0.99 09/03/24 15:16
APTT 28.2 Sec (23.4-35.0) 09/03/24 15:16
Sodium 140 mmol/L (135-145) 09/05/24 04:07
Potassium 5.2 mmol/L (3.5-5.1) H 09/05/24 04:07
BUN 23 mg/dl (9-20) H 09/05/24 04:07
Glucose 171 mg/dl (70-99) H 09/05/24 04:07
Calcium 9.9 mg/dl (8.4-10.2) 09/05/24 04:07
LDL Cholesterol, Calc 147 mg/dl 09/04/24 03:07
Vitamin B12 281 pg/ml (239-931) 09/03/24 11:15
Ur Buprenorphine Negative (Negative) 09/03/24 13:23
Patient Allergies
No Known Allergies Allergy (Unverified 08/12/20 12:25)
Vital Signs and Labs
-
Vital Signs and Labs:
Vital Signs
Temp Pulse Resp BP Pulse Ox
36.4 C 58 18 131/79 98
09/05/24 08:06 09/05/24 07:00 09/04/24 09:00 09/05/24 04:00 09/04/24 22:00
Lab Results
09/05/24 04:07
09/05/24 04:07
PT 12.9 Sec (11.4-14.6) 09/03/24 15:16
INR 0.99 09/03/24 15:16
APTT 28.2 Sec (23.4-35.0) 09/03/24 15:16
Sodium 140 mmol/L (135-145) 09/05/24 04:07
Potassium 5.2 mmol/L (3.5-5.1) H 09/05/24 04:07
BUN 23 mg/dl (9-20) H 09/05/24 04:07
Glucose 171 mg/dl (70-99) H 09/05/24 04:07
Calcium 9.9 mg/dl (8.4-10.2) 09/05/24 04:07
LDL Cholesterol, Calc 147 mg/dl 09/04/24 03:07
Vitamin B12 281 pg/ml (239-931) 09/03/24 11:15
Ur Buprenorphine Negative (Negative) 09/03/24 13:23
Medications
-
Medications:
Generic Name Dose Route Start Last Admin
Trade Name Freq PRN Reason Stop Dose Admin
Acetaminophen 650 mg 09/03/24 06:17
Acetaminophen 325 Mg Tablet PO 10/01/24 06:16
Q4HPRN PRN
Mild Pain / Temp > 101
Aspirin 81 mg 09/03/24 08:00 09/05/24 07:51
Aspirin 81 Mg Chewable Tablet PO 10/01/24 07:59 81 mg
DAILY ROBERTO Administration
Cephalexin HCl 500 mg 09/03/24 16:00 09/05/24 07:52
Cephalexin 500 Mg Capsule PO 500 mg
TID ROBERTO Administration
Cyanocobalamin 1,000 mcg 09/03/24 11:00 09/05/24 07:52
Cyanocobalamin 1,000 Mcg Tablet PO 09/09/24 08:01 1,000 mcg
DAILY ROBERTO Administration
Dextrose 12.5 grams 09/03/24 15:38
Dextrose 50% (0.5 Grams/Ml) 50 Ml Syringe IV 10/01/24 15:37
[id number] PRN
hypoglycemia
Protocol
Glucagon 1 mg 09/03/24 15:38
Glucagon 1 Mg Vial IM 10/01/24 15:37
PRN PRN
hypoglycemia
Protocol
Methylprednisolone Sodium 258 mls @ 258 mls/hr 09/03/24 15:00 09/04/24 15:05
Succinate 1,000 mg/ Sodium IV 10/01/24 14:59 258 mls
Chloride Q24H ROBERTO Administration
Insulin Aspart 0 units 09/03/24 16:30 09/05/24 07:57
Insulin Aspart Low Resistance 300 Units/3 Ml Pen.Injctr SC 10/01/24 16:29 Not Given
AC ROBERTO
Protocol
Pantoprazole Sodium 40 mg 09/03/24 15:00 09/05/24 07:51
Pantoprazole 40 Mg Delayed Release Tablet PO 10/01/24 14:59 40 mg
DAILY ROBERTO Administration
Sodium Chloride 0 flush 09/03/24 15:00
Sodium Chloride 0.9% (Flush) Syringe IV 10/01/24 14:59
PER PROTOCOL ROBERTO
Thiamine HCl 100 mg 09/04/24 13:00 09/05/24 07:51
Thiamine (100 Mg/Ml) 2 Ml Vial IV 09/06/24 08:01 100 mg
DAILY ROBERTO Administration
Home Medications
-
Home Medications
cephalexin 500 mg capsule 500 mg PO TID #21 caps 08/12/20
[2024-09-05 12:48] LABS: Glucose - Point of Care 124 mg/dl (70-99)
[2024-09-05] MEDS: SOLU-MEDROL 258 MG IV (14:55)
[2024-09-05 16:16] LABS: Glucose - Point of Care 105 mg/dl (70-99)
[2024-09-05 21:12] LABS: Glucose - Point of Care 289 mg/dl (70-99)
--- NOTE | 2024-09-06 01:11 | PTCARENOTE ---
Assumed care of pt at 1900. Pt is A/O x4, pleasant and cooperative with care. Ambulates independently around room. potline monitor removed per telemetry discontinuation protocol and pt is now med surg level of care. No c/o pain. Muscle strength
5/5 in all extremities, no neurological deficits noted, pt states that his tingling and decreased sensation is mostly gone, he has an area to his left side/flank area that feels warm and some tingling in his left fingertips but that is the extent of
his symptoms.
[2024-09-06 03:58] VITALS: BP 116/73
[2024-09-06] MEDS: NOVOLOG FLEXPEN-LOW RESISTANCE SC (08:58)
[2024-09-06 09:08] LABS: Glucose - Point of Care 122 mg/dl (70-99)
--- NOTE | 2024-09-06 09:15 | PTCARENOTE ---
received pt ambulating in the room. He is awake and alert. He was happy to report to me that he is able to discern hot and cold in his left flank area now. Right AC#20g protective catheter flushed and patent. Lungs CTA, RA sat 98%. +BSx4, admits to
BM this AM. Good appetite. He was informed of the plan of care for possible discharge. Right thumb blue sutures CONRADO. Safe environment maintained.
[2024-09-06] MEDS: VITAMIN B-12 1000 MCG PO (09:19)
[2024-09-06] MEDS: KEFLEX 500 MG PO (09:19)
[2024-09-06] MEDS: PROTONIX 40 MG PO (09:19)
[2024-09-06] MEDS: THIAMINE INJECTION 100 MG IV (09:19)
[2024-09-06] MEDS: LOW STRENGTH ASPIRIN 81 MG PO (09:19)
--- NOTE | 2024-09-06 11:10 | PTOTSP ---
pt currently demonstrates ability to complete simple ADLs, functional transfers, ambulation with no assistance. pt reports no parasthesia, normal strength in B hands. no further acute OT needs identified, will sign off at this time.
--- NOTE | 2024-09-06 11:28 | W.PN.NEURO.1 ---
Today's Communication / Plan
-
Continue cyanocobalamin 1000mg QD PO
No need at this time for continued steroids as outpatient
Follow up CSF and serological studies
Neuro Assessment/Plan
Assessment
I. Left hemisensory deficits. Differential diagnosis includes transverse myelitis based on report finding by MRI of brain with and without contrast of 'hyperintense FLAIR signal within the cervicomedullary cord peripherally on the right and left
aspects of the cord (right greater than left) suggesting myelopathy and likely involving the lateral corticospinal tracts and spinothalamic tracts' although there was no evidence of elevation of WBC count by lumbar puncture patient completed 3 doses
of methylprednisolone IV
II. Action hand tremor, likely side effect of prednisone
III. Vit B12 deficiency
Plan
-Continue cyanocobalamin 1000mg QD PO
No need at this time for continued steroids as outpatient
-Follow up CSF and serological studies
We will follow as outpatient.
Subjective/Objective
Subjective Data
Date of Service: September 06, 2024
Objective Data
Vital Signs
Temp Pulse Resp BP Pulse Ox
36.6 C 78 11 116/73 97
09/06/24 07:49 09/06/24 03:58 09/06/24 03:58 09/06/24 03:58 09/06/24 03:58
Lab Results
09/05/24 04:07
09/05/24 04:07
PT 12.9 Sec (11.4-14.6) 09/03/24 15:16
INR 0.99 09/03/24 15:16
APTT 28.2 Sec (23.4-35.0) 09/03/24 15:16
Sodium 140 mmol/L (135-145) 09/05/24 04:07
Potassium 5.2 mmol/L (3.5-5.1) H 09/05/24 04:07
BUN 23 mg/dl (9-20) H 09/05/24 04:07
Glucose 171 mg/dl (70-99) H 09/05/24 04:07
Calcium 9.9 mg/dl (8.4-10.2) 09/05/24 04:07
LDL Cholesterol, Calc 147 mg/dl 09/04/24 03:07
Vitamin B12 281 pg/ml (239-931) 09/03/24 11:15
Ur Buprenorphine Negative (Negative) 09/03/24 13:23
Patient Allergies
No Known Allergies Allergy (Unverified 08/12/20 12:25)
Data Reviewed
-
MRI Head: Report Reviewed and Image Reviewed
MRI Cervical Spine: Report Reviewed
Labs: Pending and Report Reviewed
Reviewed with: Physician
Old Records: Summarized
--- NOTE | 2024-09-06 12:01 | W.DS.TRANS ---
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
-
Discharge Instructions:
Discharge Diagnosis/Procedures Transverse myelitis, B12 deficiency, laceration
of left thumb
Diet Regular
Activity As tolerated
Instructions:
Stand-Alone Forms:
Changes to Home Medications: Yes
Discharge Medications:
DC Medications w/original date entered in [facility] [facility] [employer]
cyanocobalamin (vitamin B-12) 1,000 mcg tablet 1,000 mcg PO DAILY #30 tabs 09/06/24
Home Medication Changes
B12 initiated
Pending Results: Yes
Additional Pending Results:
Immunobiologic studies with ongoing work up and diagnosis of transverse myelitis
--- NOTE | 2024-09-06 12:12 | CM ---
Discharge to home ordered for today.
Cleared by PT and OT at (I) status with ambulation and adls.
Plan: Jessica is being discharged to home today with no needs.
[2024-09-06 12:36] VITALS: BP 134/89
[2024-09-07 00:53] LABS: SSA 52 (Ro)(ENA) Ab, IgG 2 AU/mL (0-40); SSA 60 (Ro)(ENA) Ab, IgG 0 AU/mL (0-40); SSB (La)(ENA) Ab, IgG 0 AU/mL (0-40)
[2024-09-07 00:56] LABS: Angiotensin-1- Converting, CSF 1.9 U/L (0.0-2.5)
[2024-09-07 10:52] LABS: Lyme Disease DNA by PCR Not Detected; Lyme Source CSF
[2024-09-07 19:16] LABS: Albumin 4.13 g/dL (3.75-5.01); Alpha 1 Globulin 0.26 g/dL (0.19-0.46); Alpha 2 Globulin 0.53 g/dL (0.48-1.05); SPEP IFE Reflex Not Done
[2024-09-07 21:05] LABS: Albumin Index 7.2 ratio (0.0-9.0); Albumin, CSF 29 mg/dL (0-35); Albumin, Serum 4041 mg/dL (3500-5200); CSF IgG Synthesis Rate <0.0 mg/d (<=8.0); CSF IgG/Albumin Ratio 0.11 ratio (0.09-0.25); CSF Oligoclonal Bands Positive (Negative); CSF Oligoclonal Bands Number 3 Bands (0-1); IgG 1041 mg/dL (768-1632); IgG, CSF 3.2 mg/dL (0.0-6.0)
== END 2024-09-06 13:44 | disposition home or self-care (01) | DRG 99 ==
LOC: ICU 15:51
PROVIDERS: Internal Medicine; Psychiatry & Neurology Neurology; ADMITTING PHYSICIAN Hospitalist; ATTENDING PHYSICIAN Internal Medicine; CONSULT PHYSICIAN Internal Medicine Critical Care Medicine; CONSULT PHYSICIAN Psychiatry & Neurology Neurology; CONSULT PHYSICIAN Radiology Diagnostic Radiology; EMERGENCY PHYSICIAN Student in an Organized Health Care Education/Training Program
PROC: 009U3ZX Drainage of Spinal Canal, Percutaneous Approach, Diagnostic (ICD-10-PCS; 2024-09-03)
PROC: B01B1ZZ Fluoroscopy of Spinal Cord using Low Osmolar Contrast (ICD-10-PCS; 2024-09-03)
DX: G37.3 Acute transverse myelitis in demyelinating disease of central nervous system (principal); R20.2 Paresthesia of skin; G47.30 Sleep apnea, unspecified; R09.02 Hypoxemia; E53.8 Deficiency of other specified B group vitamins; K21.9 Gastro-esophageal reflux disease without esophagitis; Z80.3 Family history of malignant neoplasm of breast; R73.9 Hyperglycemia, unspecified; D64.9 Anemia, unspecified
CPT/HCPCS: 62328; 70450; 70553; 71045; 72156; 80048; 80053; 80061; 80306; 82040; 82042; 82164; 82607; 82746; 82784; 82945; 82962; 83036; 83735; 83873; 83916; 84155; 84157; 84165; 84425; 84443; 85025; 85027; 85610; 85652; 85730; 86038; 86141; 86235; 87015; 87070; 87205; 87389; 87476; 89051; 97112; 97161; 97165; 97535; 99285; A9575

== ENCOUNTER → 2024-12-13 19:35 | Outpatient (REF) | payer BC, SELFPAY | LOC: MRI 3T 19:35 | PROVIDERS: ATTENDING PHYSICIAN Psychiatry & Neurology Neurology; FAMILY PHYSICIAN Family Medicine | DX: R90.89 Other abnormal findings on diagnostic imaging of central nervous system (principal) | CPT/HCPCS: 72157; A9575 ==

== ENCOUNTER → 2024-12-15 20:23 | Outpatient (REF) | payer BC, SELFPAY | LOC: MRI 3T 20:23 | PROVIDERS: ATTENDING PHYSICIAN Nurse Practitioner Adult Health; FAMILY PHYSICIAN Family Medicine | DX: R90.89 Other abnormal findings on diagnostic imaging of central nervous system (principal); G47.19 Other hypersomnia; R83.8 Other abnormal findings in cerebrospinal fluid | CPT/HCPCS: 70553; A9575 ==

== ENCOUNTER → 2025-09-23 17:34 | Outpatient (REF) | payer BC, SELFPAY | LOC: MRI 3T 17:34 | PROVIDERS: ATTENDING PHYSICIAN Nurse Practitioner | DX: G35.D Multiple sclerosis, unspecified (principal) | CPT/HCPCS: 72157; A9575 ==

== ENCOUNTER → 2025-09-30 17:16 | Outpatient (REF) | payer BC, SELFPAY | LOC: MRI 3T 17:16 | PROVIDERS: ATTENDING PHYSICIAN Nurse Practitioner; FAMILY PHYSICIAN Family Medicine | DX: G35.D Multiple sclerosis, unspecified (principal) | CPT/HCPCS: 70553; 72156; A9575 ==